=== PATIENT | male | born 1960 | race Caucasian/White ===

== ENCOUNTER 2016-11-04 13:31 | Inpatient (IN) | payer OTHER ==
--- NOTE | ~2016-11-04 | DS ---
Discharge Summary [facility] [address] [place]. [address] NAME: LVEY IBARRA : 64 STATUS : DIS IN PAT#: [id number] AGE: 56 ADM/REG DATE : 11/04/16 MR#: [id number] REPORT SERV DATE: 11/28/16 DICTATED BY: CLAU ZHOU JR. DATE: 11/27/16 REPORT STATUS : Draft TRANSCRIBED BY: HILARY DATE: 11/27/16 Data Collection from hospitalization DISCHARGE DIAGNOSES: 1. Coronary artery disease, status post coronary artery bypass. 2. Aortic stenosis, status post aortic valve replacement. 3. Hypertension. 4. Obstructive sleep apnea. 5. Dyslipidemia. 6. Obesity consulate. CONSULTATIONS: 1. Devan Gudino M.D. 2. Frank Bourne M.D. 3. Molina Gayle Jr, MD. PROCEDURES PERFORMED: 1. Urgent coronary artery bypass grafting x2 with left internal mammary artery to the left anterior descending artery, saphenous vein graft to the obtuse marginal, aortic valve replacement with #3 On-X mechanical valve; transesophageal echocardiogram; VasoView vein harvesting right lower extremity on 11/10/2016. 2. Carotid blood flow study on 11/06/2016. PATHOLOGY: Aortic valve leaflets - replacement - nodular calcification and limited myxomatous degeneration of valvular leaflets. MEDICATIONS: Cordarone 200 mg twice a day, aspirin 81 mg daily, Lipitor 40 mg at bedtime, vitamin D 50,000 units weekly, Pepcid 20 mg twice a day, Lasix 20 mg daily, [place] 10/325 half to one tablet every four hours as needed, Prinivil 5 mg daily, Lopressor 25 mg twice a day, Nitrostat 0.4 mg sublingually as needed, Klor-Con 20 mEq daily, nasal spray one spray nasally daily as needed, and Coumadin 5 mg daily. He was instructed not to continue Plavix. CONDITION AT DISCHARGE: Stable. DISPOSITION: The patient was discharged home on a low-cholesterol, low-sodium, 1800-calorie cardiac/diabetic diet with activities as instructed. He would follow up with Dr. Frank Bourne on 12/13/2016. He would follow up with Dr. Ynes Garza on 11/22/2016. He would follow up with Dr. Lo Lozano on 12/25/2016. He would have his INR level checked at the office of Dr. Ynes Garza on 11/17/2016. HOSPITAL COURSE: This is a 56-year-old man who has a history of coronary artery disease. He is status post cardiac catheterization by Dr. Lozano at [facility] in [place] on 11/02/2016. At that time, there was ventricular ectopy with PVCs. He had been scheduled to see Dr. Lainez for EP ablation, but was presumed to have angina for which a cardiac catheterization was scheduled. He was diagnosed with multivessel epicardial coronary artery disease with preserved left ventricular systolic function and moderate aortic stenosis. He was subsequently scheduled for referral to [place], but called EMS in [place] for increased palpitations and chest pressure with wheezing. [facility] redirected him to [address] [address] NAME: LEVY IBARRA : 64 STATUS : DIS IN PAT#: [id number] AGE: 56 ADM/REG DATE : 11/04/16 MR#: [id number] REPORT SERV DATE: 11/28/16 DICTATED BY: CLAU ZHOU JR. DATE: 11/27/16 REPORT STATUS : Draft TRANSCRIBED BY: HILARY DATE: 11/27/16 and he presented and was noted to have ventricular bigeminy. His symptoms of chest pain had dissipated on 2 liters nasal cannula oxygen. Troponin was mildly abnormal at 0.1. EKG was notable for sinus rhythm, delayed R-wave progression, nonspecific ST-T changes, and PVC with occasional ventricular bigeminy. The patient was seen by Dr. Devan Gudino. He has had some wheezing and chest tightness since admission, though his major complaint had been very frequent PVCs and atypical chest discomfort, although no substernal chest pain. He denies any chronic sputum production, significant cough, recent fever, chills, or night sweats. He does snore at night and had symptoms and signs to suggest obstructive sleep apnea and actually had a sleep study scheduled for early November, although obviously that had not taken place yet. His preoperative evaluation revealed very good performance status. He had good metabolic equivalent. He was able to at least walk a flight of stairs without significant dyspnea. He does not have chronic respiratory symptoms. He seemed to be good candidate from his perspective. He was started on some bronchodilators in anticipation of the surgery and it was felt that he may need CPAP or BiPAP postoperatively, although again his sleep apnea was likely of long duration and would definitely need formal outpatient sleep study. He was also seen by Dr. Frank Bourne for evaluation for coronary artery bypass grafting and aortic valve replacement. His cardiac catheterization had shown multi-vessel coronary artery disease as well as aortic stenosis. He wanted to await transfer of the patient's cardiac catheterization and echocardiogram from [facility] and wanted to review these. He wished to proceed with surgery. We would allow a Plavix washout period of time and perform his surgery later in the week. The patient did prefer a mechanical valve. On 11/06/2016, O2 saturation was 97% on room air. He had positive bowel sounds. He did have a bowel movement. Urinalysis was going to be obtained. A carotid blood flow study was performed. The patient was refusing his respiratory medications. He was awake and alert. He showed no distress. His breath sounds were clear. He had no new issues. Plans were being made to proceed with surgery. On 11/10/2016, the patient was taken to the operating room where he underwent the above-mentioned procedure by Dr. Frank Bourne. He tolerated this well, and there were no complications. On postop day #1, BMP was within normal limits. He did have some dizziness and headache. He had been extubated. He had appropriate chest pain. He had no new issues. He had no significant edema. He was seen by Dr. Molina Gayle regarding diabetes management. His preoperative hemoglobin A1c had been 5.6. He was going to be started on Coumadin that evening and transferred to the floor. White count was 23.7. He was felt to have some insulin resistance. There is no history of diabetes mellitus. He was currently on an insulin drip. This was discontinued and he was placed on sliding scale Humalog insulin. Metoprolol was continued as well as Lipitor. On 11/13/2016, chest x-ray showed no pneumothorax. He had diminished breath sounds throughout. Chest tubes were removed. He was evaluated by Physical Therapy. Warfarin had begun. He continued to progress. Discharge planning was performed. His INR level was 1.5. On 11/15/2016, he was in a normal sinus rhythm. He continued to do well. He had no new complaints. Discharge instructions were given. Due to his improved and stable condition, he was discharged home with the above stated instructions. Information collected by: Jessica Delvalle I submit the above information as my discharge summary. Discharge Summary [facility] [address] [place]. [address] NAME: LEVY IBARRA : 64 STATUS : DIS IN PAT#: [id number] AGE: 56 ADM/REG DATE : 11/04/16 MR#: [id number] REPORT SERV DATE: 11/28/16 DICTATED BY: CLAU ZHOU JR. DATE: 11/27/16 REPORT STATUS : Draft TRANSCRIBED BY: HILARY DATE: 11/27/16 TG/HILARY Clau Zhou Jr., M.D. / [id number] CC: Marino Puri M.D.
--- NOTE | ~2016-11-04 | CN ---
Consultation Report [facility] [address] [place]. [address] NAME: LEVY DODD : 64 STATUS : ADM IN [facility]#: [id number] AGE: 56 ADM/REG DATE : 11/04/16 MR#: [id number] REPORT SERV DATE: 11/05/16 DICTATED BY: KATERINE GUDINO DATE: 11/05/16 REPORT STATUS : Draft TRANSCRIBED BY: MODL DATE: 11/05/16 CONSULTATION DATE OF CONSULTATION: Thank you for the opportunity to consult on this patient. HISTORY OF PRESENT ILLNESS: Mr. Dodd is a very pleasant, overweight 56-year-old man diagnosed with multivessel coronary artery disease and aortic valve disease, who was being evaluated for AVR with CABG. He had some wheezing and chest tightness since admission though his major complaint has been of very frequent PVCs and atypical chest discomfort though no substernal chest pain. As part of his workup, he had a cardiac catheterization which showed the findings noted above. He denies significant cough, chronic sputum production, recent fevers, chills, or night sweats. He does snore at night and has symptoms and signs to suggest obstructive sleep apnea, and actually had a sleep study scheduled for early November though obviously that has not taken place yet and he is here. PAST MEDICAL HISTORY: Significant for the new diagnosis of critical coronary artery disease. He has a history of high blood pressure with medications at home and frequent PVCs though no history of chronic lung disease. SOCIAL HISTORY: Significant for being a lifelong never smoker. No alcohol abuse or illicit drug use. FAMILY HISTORY: Noncontributory to this acute presentation in this patient who has established coronary artery disease. REVIEW OF SYSTEMS: Review of 10 systems was performed and is positive for what was noted above. PHYSICAL EXAMINATION: GENERAL: He is awake and alert. HEENT: Normocephalic and atraumatic. NECK: Supple. No lymphadenopathy. No JVD. CHEST: Symmetric with good expansion bilaterally. LUNGS: Clear to auscultation and percussion bilaterally. CARDIOVASCULAR: He has S1 and S2, which are regular rate and rhythm. ABDOMEN: Benign. EXTREMITIES: He has no edema. No clubbing. No cyanosis. ASSESSMENT/PLAN: Preoperative evaluation. The patient has very good performance status. Good metabolic equivalent. He is able to walk at least a flight of stairs without significant dyspnea. Does not have chronic respiratory symptoms. No tobacco use and no previous history of chronic lung disease other than a diagnosis of pneumonia more than 20 years ago. He seems to be a good candidate from our perspective. Since he did have some Consultation Report [address] [place]. [address] NAME: LEVY DODD : 64 STATUS : ADM IN PAT#: [id number] AGE: 56 ADM/REG DATE : 11/04/16 MR#: [id number] REPORT SERV DATE: 11/05/16 DICTATED BY: KATERINE GUDINO DATE: 11/05/16 REPORT STATUS : Draft TRANSCRIBED BY: HILARY DATE: 11/05/16 wheezing which is fairly nonspecific and actually have represented some of his cardiac problems because of the AVR, we will nonetheless start him on some bronchodilators in anticipation of the surgery and he may need CPAP or BiPAP postoperatively though again his sleep apnea is likely of long duration and will definitely need formal outpatient sleep study. We will be glad to monitor him with you during this hospitalization. Please do not hesitate to contact me if I could be of any further assistance. VENITA/HILARY Katerine Gudino M.D. / [id number] CC: Berny Zhou Jr., M.D.
--- NOTE | ~2016-11-04 | CN ---
Consultation Report [facility] [address] [place]. [address] NAME: LEVY IBARRA : 64 STATUS : ADM IN PAT#: [id number] AGE: 56 ADM/REG DATE : 11/04/16 MR#: [id number] REPORT SERV DATE: 11/12/16 DICTATED BY: JR. GAYLE WILLIAM JOHN DATE: 11/12/16 REPORT STATUS : Draft TRANSCRIBED BY: MODL DATE: 11/12/16 INTERNAL MEDICINE CONSULTATION DATE OF CONSULTATION: 11/12/2016 REASON FOR REQUEST: Diabetes management. HISTORY OF PRESENT ILLNESS: A 56-year-old male admitted on 11/04/[address] Zhou for palpitations and multivessel coronary artery disease as well as moderate aortic stenosis. The patient had been seen at [facility] and had a catheterization revealing the above findings and was admitted by Dr. Zhou for further workup. The patient was seen in consultation by Dr. Gudino of Pulmonary Medicine for optimization of his respiratory status. He was also seen by Cardiothoracic Surgery. He had a carotid flow study, which showed no significant stenosis with antegrade vertebral flow. Then on 11/10/2016, the patient underwent a 2- vessel coronary artery bypass graft with a JACOBS to the LAD and a saphenous vein graft to the obtuse marginal as well as an aortic valve replacement with a mechanical valve #23 On-X mechanical valve without complication. The patient is to be started on Coumadin tonight and be transferred to the floor today. He has no history of diabetes mellitus. His preop hemoglobin A1c was 5.6. He is currently on 2 to 3 units/hour of insulin by drip. PAST MEDICAL HISTORY: Includes: 1. Hypertension. 2. COPD. 3. Coronary artery disease. 4. Hyperlipidemia. 5. Obesity. CURRENT MEDICATIONS: Include: 1. Amiodarone 400 mg every 12 hours. 2. Coumadin per sliding scale. 3. Aspirin 81 daily. 4. Lipitor 40 daily. 5. Metoprolol 25 b.i.d. 6. Orazinc 220 daily. 7. Pepcid 20 twice a day. 8. Senokot 2 tablets twice a day. 9. Vitamin C 1000 twice a day. 10.Vitamin D 50,000 units every Sunday. ALLERGIES: NO KNOWN DRUG ALLERGIES. FAMILY HISTORY: Mother at age 83 of Alzheimer's dementia. Father in his 50s of myocardial infarction, also had used tobacco and alcohol extensively. Consultation Report [facility] [address] [address] [facility] [place]. [address] NAME: LEVY IBARRA : 64 STATUS : ADM IN PAT#: [id number] AGE: 56 ADM/REG DATE : 11/04/16 MR#: [id number] REPORT SERV DATE: 11/12/16 DICTATED BY: JR. GAYLE WILLIAM JOHN DATE: 11/12/16 REPORT STATUS : Draft TRANSCRIBED BY: HILARY DATE: 11/12/16 SOCIAL HISTORY: Lives in [place], [place], with his and son. He does not drink, smoke, or do illicit drugs. 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 REVIEW OF SYSTEMS: Negative in all 12 systems review, except does admit to occasional palpitations, cough, and history of migraines. PHYSICAL EXAMINATION: VITAL SIGNS: Temperature 99.3, blood pressure 142/69, heart rate 84, and respiratory rate 20. He is on 3 units/hour of insulin by drip currently. GENERAL: The patient is alert, oriented, and very pleasant. HEENT: Pupils are equal, round, and reactive to light. Extraocular motion intact. Sclerae anicteric. Oropharynx is clear. NECK: Supple. There is no jugular venous distention, thyromegaly, or bruits. LUNGS: Had scattered crackles. There was a chest tube in place. Symmetrical chest rise. CARDIOVASCULAR: S1, S2 without gallop, murmur, or rub. There is a median sternotomy wound that is covered with a wound VAC. ABDOMEN: Obese, soft, nontender, bowel sounds present. EXTREMITIES: Show no clubbing, cyanosis, edema. He had a support hose on his legs. NEUROLOGIC: Cranial nerves 2 through 12 are intact. Strength and sensation are full and equal throughout. LYMPHATICS: Lymph node survey is negative in cervical and supraclavicular region. DERM: There are no rashes or other lesions noted. PSYCHIATRIC: Mood and affect are appropriate and upbeat. LABORATORY DATA: White count 23.7, hemoglobin 12.1, platelets 176. Sodium 137, potassium 4.4, chloride 105, bicarb 24, BUN 15, creatinine 0.8, glucose 121, calcium 9.1, magnesium 2.1. ASSESSMENT AND PLAN: A 56-year-old male with: 1. Post bypass and aortic valve replacement, insulin resistance. No history of diabetes mellitus with hemoglobin A1c of 5.6. He is currently on insulin drip at 2 to 3 units/hour. We will discontinue this, and we will place him on sliding scale Humalog insulin with Accu-Cheks q.a.c. and h.s. 2. Hypertension. Continue metoprolol. 3. Chronic obstructive pulmonary disease. Continue present. 4. Hyperlipidemia. Continue Lipitor. 5. Obesity with a body mass index of 43.7. 6. Mechanical heart valve. Coumadin to start tonight and his current INR is 1.3. FRANCK/HILARY Molina Robin Consultation Report [address] [address] NAME: LEVY IBARRA : 64 STATUS : ADM IN PAT#: [id number] AGE: 56 ADM/REG DATE : 11/04/16 MR#: [id number] REPORT SERV DATE: 11/12/16 DICTATED BY: JR. GAYLE WILLIAM JOHN DATE: 11/12/16 REPORT STATUS : Draft TRANSCRIBED BY: HILARY DATE: 11/12/16 Jr Gayle MD / [id number] CC: Berny Zhou Jr., M.D.
--- NOTE | ~2016-11-04 | HP ---
History And Physical [facility] [id number] [place]. [address] NAME: LEVY IBARRA : 64 STATUS : ADM IN PAT#: [id number] AGE: 56 ADM/REG DATE : 11/04/16 MR#: [id number] REPORT SERV DATE: 11/04/16 DICTATED BY: CLAU ZHOU JR. DATE: 11/04/16 REPORT STATUS : Draft TRANSCRIBED BY: MODJean DATE: 11/04/16 DATE OF ADMISSION: 11/04/2016 REFERRING: Dr. Lozano. CHIEF COMPLAINT: Palpitations, paresthesia, chest pain. HISTORY OF PRESENT ILLNESS: The patient is a 56-year-old, male with a history of coronary artery disease, post cardiac catheterization by Dr. Lozano at [facility] on 11/02/2016 for which indication at that time was ventricular ectopy with PVCs. He had been scheduled to see Dr. Lainez for EP ablation, but was presumed to have angina for which cardiac catheterization was scheduled. He was diagnosed with multivessel epicardial coronary artery disease with preserved LV systolic function and moderate aortic stenosis per Dr. Pérez' report. He was subsequently scheduled for referral to [place], but called EMS in [place] for increased palpitations and chest pressure with wheezing. [facility] redirected him to [facility] for which he presents now. He was noted to have ventricular bigeminy. His symptoms of chest pain had dissipated on 2 L nasal cannula oxygen. Troponin is mildly abnormal at 0.1. REVIEW OF SYSTEMS: A 10-point review of systems, otherwise, unremarkable. He denies any prior history of asthma, but is being evaluated for sleep apnea. ALLERGIES: NONE KNOWN. MEDICATIONS: Include amiodarone 200 mg b.i.d., aspirin 325 mg daily, Lipitor 10 mg at bedtime, Plavix 75 mg daily, vitamin D 50,000 units weekly on Tuesdays, lisinopril 10 mg daily, nitroglycerin sublingual as needed, [id number] nasal spray as needed. PAST MEDICAL HISTORY: Notable for history of hypertension, clinical obstructive sleep apnea, coronary artery disease, dyslipidemia, obesity. PAST SURGICAL HISTORY: Otherwise unremarkable. SOCIAL HISTORY: Notable for absence of tobacco or ethanol use. FAMILY HISTORY: Notable for heart disease. PHYSICAL EXAMINATION: VITAL SIGNS: Blood pressure is 121/72, pulse is 65, respirations 17, pulse oximetry was 100%. HEENT: Unremarkable. NECK: Supple without jugular venous distention. CARDIOVASCULAR SYSTEM: Regular rate and rhythm with a 2/6 systolic murmur. LUNGS: Notable for wheezing bilaterally. ABDOMEN: Benign without hepatomegaly. Bowel sounds are normal. History And Physical [address] [place]. [address] NAME: LEVY IBARRA : 64 STATUS : ADM IN [facility]#: [id number] AGE: 56 ADM/REG DATE : 11/04/16 MR#: [id number] REPORT SERV DATE: 11/04/16 DICTATED BY: CLAU ZHOU JR. DATE: 11/04/16 REPORT STATUS : Draft TRANSCRIBED BY: HILARY DATE: 11/04/16 EXTREMITIES: 1+ with only trace pedal edema. NEUROLOGIC: He is grossly intact. LABORATORY DATA: Include an H and H of 14.6 and 41.7, white count of 10.5, platelet count 226,000. Sodium 136, potassium 3.9, chloride 107, CO2 of 25, BUN 13, creatinine 0.8, glucose of 92, BNP of 40. Troponin 0.11. PT 13.4, INR of 1. Normal liver enzymes. Chest x-ray is unremarkable. EKG is notable for sinus rhythm, delayed R-wave progression, nonspecific ST changes. PVC with occasional ventricular bigeminy. IMPRESSION: 56-year-old white male with a diagnosed multivessel epicardial coronary artery disease, by report from his field support representative with moderate aortic stenosis. PLANS AND RECOMMENDATIONS: 1. Referral for CABG AVR as requested by his field support representative. 2. Pulmonary consultation for clinical obstructive adult sleep apnea. 3. Dietitian. 4. Further recommendations to follow. /HILARY Clau Zhou Jr., M.D. / [id number] CC: Clau Zhou Jr., M.D.
--- NOTE | ~2016-11-04 | OP ---
Record Of Operation [facility] [address] [place]. [address] NAME: LEVY IBARRA : 64 STATUS : ADM IN PAT#: [id number] AGE: 56 ADM/REG DATE : 11/04/16 MR#: [id number] REPORT SERV DATE: 11/10/16 DICTATED BY: FRANK COATES DATE: 11/10/16 REPORT STATUS : Draft TRANSCRIBED BY: MODL DATE: 11/10/16 DATE OF PROCEDURE: 11/10/2016 PREOPERATIVE DIAGNOSES: Aortic stenosis, coronary artery disease, and obesity. POSTOPERATIVE DIAGNOSES: Aortic stenosis, coronary artery disease, and obesity. PROCEDURE: 1. Urgent coronary artery bypass grafting x2 with a JACOBS to the LAD, saphenous vein graft to the obtuse marginal. 2. Aortic valve replacement with a #23 On-X mechanical valve. 3. Transesophageal echocardiogram. 4. VasoView vein harvesting, right lower extremity. SURGEON: Frank Coates M.D. ICT HELP DESK OFFICER: Nathan Navarro. ANESTHESIOLOGIST: Nitish Doshi. CARDIOPULMONARY BYPASS: 101 minutes. CROSS-CLAMP TIME: 83 minutes. FINDINGS: Calcified trileaflet valve, heavily diseased targets, normal ejection fraction, trace mitral regurgitation. Wires were atrial and ventricular x2. Tubes were left pleural x1, right pleural x1 and mediastinal x2. COMPLICATIONS: None. CONDITION: Fair to the ICU on no drips. AV paced at 80. PROCEDURE IN DETAIL: After informed consent was obtained from the patient, he was brought to the operating room, laid in supine position, and general anesthesia was induced. A transesophageal echocardiogram was performed, which showed moderate to severe aortic stenosis with trace mitral regurgitation and a normal ejection fraction. Patient was prepped and draped in normal fashion. Basically, vein harvesting commenced on the right lower extremity by making an incision just medial to the right knee. Dissection carried proximally and distally. All tributaries were coagulated. Counter incisions were made and the vein was removed. All tributaries were then clipped. Skin incisions were closed using Vicryl sutures. A median sternotomy was performed in the usual fashion. The left hemisternum elevated using a Rultract retractor. The left pleura was taken down in its entirety and the left internal mammary artery harvested from the chest wall using Bovie electrocautery. All tributaries were clipped. After systemic heparinization, the distal limb was severed from the chest wall and a good blood flow was noted. Papaverine was soaked on the vessel wall. Pericardium was opened in the midline and tacked to the skin using Record Of Operation [facility] [address] [place]. [address] NAME: LEVY IBARRA : 64 STATUS : ADM IN PAT#: [id number] AGE: 56 ADM/REG DATE : 11/04/16 MR#: [id number] REPORT SERV DATE: 11/10/16 DICTATED BY: FRANK COATES DATE: 11/10/16 REPORT STATUS : Draft TRANSCRIBED BY: MODL DATE: 11/10/16 multiple silk sutures. Aortic cannulation was performed. The proximal aortic arch and venous cannulation performed in the right atrial appendage. A retrograde cardioplegia cannula was placed in the coronary sinus via the right atrium. The patient was placed on cardiopulmonary bypass and cooled to approximately 35 degrees. An LV vent was placed via the right superior pulmonary vein. A cardioplegia/vent cannula was placed in the ascending aorta. Cross clamp was placed across the aorta and 800 mL of cold blood cardioplegia given to the aortic root with excellent arrest. Heart was rotated and the obtuse marginal artery identified. This was dissected using a [place] blade and extended using Mabry scissors. Saphenous vein was placed in a reverse manner, a zhou created, and an end-to-side anastomosis performed using a running 7-0 Deklene suture. Heart was filled and the vein sized to the ascending aorta around the left side of the heart. Antegrade cardioplegia was given. Ascending aorta was then entered sharply just above the sinotubular junction. The aortic valve was then excised using scissors. Rongeurs were then used to debride all calcific debris back to soft anulus. The anulus was sized and a #23 On-X mechanical valve selected. Circumferential 2-0 Tycron pledgeted sutures were placed around the valve anulus so that the valve would be placed in a supra-annular fashion. Sutures were then fired through the sewing ring of the valve without difficulty. Intermittent retrograde cardioplegia was administered. The valve was seated without difficulty and sutures were tied down circumferentially. The ascending aorta was then closed using two running 4-0 Prolene sutures. Heart was filled and de-aired through the root vent. Antegrade cardioplegia was given. Midportion of the LAD artery was identified, dissected using a [place] blade. It was heavily diseased but a soft spot was found. Distal end of the mammary artery was fashioned to a zhou and end-to-side anastomosis performed using a running 8-0 Deklene suture. Bulldog was released and excellent blood flow was noted distally. Fascia of the mammary was tacked down to the LV wall using two 6-0 Prolene sutures. Antegrade cardioplegia was given. An 11 blade knife was used to make a single stab incision on the ascending aorta, and a 4.5 mm punch used to create a single aortotomy. Single proximal anastomosis was performed using a running 6-0 Prolene suture. Heart was filled and de-aired through the root vent. Cross-clamp was removed. Ventricular pacing wires were placed on the right ventricular surface. A left pleural, right pleural, and posterior pericardial chest tubes were placed. Atrial pacing wires were placed on the right atrial surface. After the patient achieved normothermia, he was weaned from cardiopulmonary bypass without difficulty. Doppler flow analysis was performed on both tributaries and both had excellent flow. Transesophageal echocardiogram showed the valve to be functioning well with no perivalvular leaks. Protamine was administered. The patient was decannulated. After surgical hemostasis was achieved, an anterior pericardial chest tube was placed and the sternum reapproximated using the sternal cable system. The skin, subcutaneous, and the subcuticular tissue were closed over the sternum using running Vicryl and Monocryl sutures. Overall, the patient tolerated the procedure well, was transported to the ICU in fair condition on no drips. AV paced at 80. CCR/MODL Frank Coates M.D. Record Of Operation [facility] [address] [place]. [address] NAME: LEVY IBARRA : 64 STATUS : ADM IN [facility]#: [id number] AGE: 56 ADM/REG DATE : 11/04/16 MR#: [id number] REPORT SERV DATE: 11/10/16 DICTATED BY: FRANK COATES DATE: 11/10/16 REPORT STATUS : Draft TRANSCRIBED BY: HILARY DATE: 11/10/16 / [id number] CC: Berny Zhou Jr., M.D.
--- NOTE | ~2016-11-04 | CN ---
Consultation Report [facility] [address] [place]. [address] NAME: LEVY IBARRA : 64 STATUS : ADM IN PAT#: [id number] AGE: 56 ADM/REG DATE : 11/04/16 MR#: [id number] REPORT SERV DATE: 11/10/16 DICTATED BY: FRANK COATES DATE: 11/10/16 REPORT STATUS : Draft TRANSCRIBED BY: MODL DATE: 11/10/16 CONSULT NOTE DATE OF CONSULTATION: 11/05/2016 REFERRING PHYSICIAN: Dr. Lo Lozano of [place]. REASON FOR REFERRAL: Evaluation for coronary artery bypass grafting and aortic valve replacement. HISTORY OF PRESENT ILLNESS: The patient is a 56-year-old male, who was admitted to [facility] for chest pressure. He had a cardiac cath this past that showed multivessel coronary artery disease as well as aortic stenosis. He was pending workup at [facility] but after chest pain and pressure was seen by EMS and brought to [facility]. He also had multiple PVCs as well. He was admitted to the Cardiology Service and we were consulted for intervention. PAST MEDICAL HISTORY: Significant for coronary artery disease, hypertension, obstructive sleep apnea, hyperlipidemia, and obesity. PAST SURGICAL HISTORY: Cardiac catheterization. SOCIAL HISTORY: Negative for alcohol or illegal drug use. Former smoker. FAMILY HISTORY: Relevant for only hypertension, no coronary artery disease. ALLERGIES: NO KNOWN DRUG ALLERGIES. HOME MEDICATIONS: Plavix, Lipitor, aspirin, lisinopril, and nitroglycerin. REVIEW OF SYSTEMS: Otherwise negative that which was stated in the HPI. PHYSICAL EXAMINATION: VITAL SIGNS: He is afebrile. Vital signs are all stable. HEENT: Normocephalic, atraumatic with no scleral icterus. NECK: Supple with no thyromegaly. CHEST: Clear to auscultation bilaterally. HEART: Regular rate and rhythm with a 3/6 systolic murmur. ABDOMEN: Soft, nontender, nondistended. EXTREMITIES: Warm with 1+ distal pulses. No clubbing, cyanosis, or edema. MUSCULOSKELETAL: Grossly intact. NEUROLOGIC: Grossly intact. Consultation Report [facility] [address] [place]. [address] NAME: LEVY IBARRA : 64 STATUS : ADM IN PAT#: [id number] AGE: 56 ADM/REG DATE : 11/04/16 MR#: [id number] REPORT SERV DATE: 11/10/16 DICTATED BY: FRANK COATES DATE: 11/10/16 REPORT STATUS : Draft TRANSCRIBED BY: HILARY DATE: 11/10/16 STUDIES: We are awaiting transfer of his cardiac catheterization and echocardiogram from [facility], but once these are received, I will review these. IMPRESSION: Multivessel coronary artery disease with aortic stenosis. I have explained all risks, benefits, and alternatives of surgery with him including but not limited to, bleeding, infection, stroke, and . He understands these risks and wished to proceed with surgery. We will allow a Plavix washout period of time and perform his surgery later in the week. The patient does prefer a mechanical valve. CCR/HILARY Frank Coates M.D. / [id number] CC: Berny Zhou Jr., M.D.
[2016-11-04 13:16] LABS: BASOPHILS 0.2 %; BASOPHILS ABSOLUTE 0.02 10/3/uL (0.0-0.16); EOSINOPHILS 0.4 %; EOSINOPHILS ABSOLUTE 0.04 10/3/uL (0.0-0.53); ER CBC TAT 0 Hrs 03 Mins; HEMATOCRIT 41.7 % (40.0-51.0); HEMOGLOBIN 14.6 g/dL (13.6-17.8); IMMATURE GRANULOCYTES 0.3 %; IMMATURE GRANULOCYTES ABSOLUTE 0.03 10/3/uL (0.0-0.11); LYMPHOCYTES 15.9 %; LYMPHOCYTES ABSOLUTE 1.67 10/3/uL (0.67-4.30); MEAN CORPUSCULAR HEMOGLOB 31.8 pg (26.0-34.0); MEAN CORPUSCULAR VOLUME 90.8 fL (80-100); MEAN PLATELET VOLUME 10.2 fL (9.2-13.0); MONOCYTES 7.3 %; MONOCYTES ABSOLUTE 0.77 10/3/uL (0.21-1.20); NEUTROPHILS 75.9 %; PLATELET COUNT 226 10/3/uL (150-400); RBC DISTRIBUTION WIDTH 12.9 % (12.0-16.0); RED CELL COUNT 4.59 10/6/uL (4.7-6.1); WHITE BLOOD CELLS 10.5 10/3/uL (4.5-10.5)
[2016-11-04 13:19] LABS: MANUAL DIFF NO %
[2016-11-04 13:24] LABS: PROTIME (NOT ORD) 13.4 SEC (12.0-14.5)
[2016-11-04 13:33] LABS: A/G RATIO 0.8 (0.7-1.9); ALBUMIN 3.2 G/DL (3.5-5.0); ALKALINE PHOSPHATASE 61 U/L (45-117); BUN (BLOOD UREA NITROGEN) 13 MG/DL (6-23); CALCIUM, SERUM 8.8 MG/DL (8.5-10.4); CHLORIDE, SERUM 107 MMOL/L (96-112); CO2 (CARBON DIOXIDE) 25 MMOL/L (24-34); CREATININE 0.84 MG/DL (0.70-1.30); GFR AFRICAN AMERICAN 115 ML/MIN (>=60); GFR NON AFRICAN AMERICAN 99 ML/MIN (>=60); GLOBULIN 3.9 G/DL (2.5-4.1); POTASSIUM, SERUM 3.9 MMOL/L (3.5-5.3); SGOT(AST) 23 U/L (5-40); SGPT(ALT) 35 U/L (5-65); SODIUM, SERUM 136 MMOL/L (135-148); TOTAL BILIRUBIN 0.6 MG/DL (0-1.2); TOTAL PROTEIN 7.1 G/DL (6.0-8.5)
[2016-11-04 13:36] LABS: GLUCOSE, SERUM 92 MG/DL (60-99); TROPONIN I 0.11 NG/ML (<0.05)
[2016-11-04] MEDS ORDERED: CORDARONE PO (13:58)
[2016-11-04] MEDS ORDERED: LIPITOR10 PO (13:58)
[2016-11-04] MEDS ORDERED: PLAVIX PO (13:58)
[2016-11-04] MEDS ORDERED: ASABAYER PO (13:59)
[2016-11-04] MEDS ORDERED: PRIN10 PO (14:00)
[2016-11-04] MEDS ORDERED: NITROSTAT0.4 MG SL (14:00)
[2016-11-04] MEDS ORDERED: OTC NASAL SPRAY NAS (14:00)
[2016-11-04] MEDS ORDERED: VITD PO (14:00)
[2016-11-05 01:16] LABS: BASOPHILS 0.1 %; BASOPHILS ABSOLUTE 0.01 10/3/uL (0.0-0.16); EOSINOPHILS 0.9 %; HEMATOCRIT 40.3 % (40.0-51.0); HEMOGLOBIN 13.8 g/dL (13.6-17.8); IMMATURE GRANULOCYTES 0.2 %; IMMATURE GRANULOCYTES ABSOLUTE 0.02 10/3/uL (0.0-0.11); LYMPHOCYTES 25.4 %; LYMPHOCYTES ABSOLUTE 2.77 10/3/uL (0.67-4.30); MANUAL DIFF NO %; MEAN CORPUS HGB CONC 34.2 g/dL (32.0-36.0); MEAN CORPUSCULAR HEMOGLOB 31.2 pg (26.0-34.0); MEAN CORPUSCULAR VOLUME 91.2 fL (80-100); MEAN PLATELET VOLUME 10.4 fL (9.2-13.0); MONOCYTES 8.6 %; MONOCYTES ABSOLUTE 0.94 10/3/uL (0.21-1.20); NEUTROPHILS 64.8 %; NEUTROPHILS ABSOLUTE 7.06 10/3/uL (2.02-8.40); PLATELET COUNT 222 10/3/uL (150-400); RED CELL COUNT 4.42 10/6/uL (4.7-6.1); WHITE BLOOD CELLS 10.9 10/3/uL (4.5-10.5)
[2016-11-05 01:31] LABS: BUN (BLOOD UREA NITROGEN) 15 MG/DL (6-23); CALCIUM, SERUM 8.6 MG/DL (8.5-10.4); CHLORIDE, SERUM 106 MMOL/L (96-112); CHOL/HDL RATIO(NOT ORDER) 5.3 (0-5); CHOLESTEROL 127 MG/DL (< 200); CO2 (CARBON DIOXIDE) 27 MMOL/L (24-34); CREATININE 0.83 MG/DL (0.70-1.30); GFR AFRICAN AMERICAN 116 ML/MIN (>=60); GFR NON AFRICAN AMERICAN 100 ML/MIN (>=60); GLUCOSE, SERUM 88 MG/DL (60-99); HDL CHOLESTEROL 24 MG/DL (> 39); LDL CHOLESTEROL 69 MG/DL (< 130); NON-HDL CHOLESTEROL 103 MG/DL (< 160); POTASSIUM, SERUM 3.7 MMOL/L (3.5-5.3); SGPT(ALT) 34 U/L (5-65); SODIUM, SERUM 139 MMOL/L (135-148); TRIGLYCERIDE 174 MG/DL (< 150)
[2016-11-06 05:03] LABS: BUN (BLOOD UREA NITROGEN) 15 MG/DL (6-23); CALCIUM, SERUM 8.6 MG/DL (8.5-10.4); CHLORIDE, SERUM 107 MMOL/L (96-112); CO2 (CARBON DIOXIDE) 27 MMOL/L (24-34); CREATININE 0.87 MG/DL (0.70-1.30); GFR AFRICAN AMERICAN 113 ML/MIN (>=60); GFR NON AFRICAN AMERICAN 98 ML/MIN (>=60); GLUCOSE, SERUM 124 MG/DL (60-99); POTASSIUM, SERUM 3.8 MMOL/L (3.5-5.3); SODIUM, SERUM 140 MMOL/L (135-148)
[2016-11-06 06:00] LABS: MAX AMP (ADP) 17.8 MM (35-68)
[2016-11-06 06:01] LABS: TEG - ANGLE 62.5 DEG (53-72); TEG - COAGULATION INDEX -2.3 (-3 TO 3); TEG - MAXIMUM AMPLITUDE 61.7 MM (50-70); TEG - RATE 9.2 MIN (5.0-10.0)
[2016-11-06 07:08] LABS: BASOPHILS 0.2 %; BASOPHILS ABSOLUTE 0.03 10/3/uL (0.0-0.16); EOSINOPHILS 1.3 %; EOSINOPHILS ABSOLUTE 0.18 10/3/uL (0.0-0.53); HEMOGLOBIN 15.1 g/dL (13.6-17.8); IMMATURE GRANULOCYTES 0.4 %; IMMATURE GRANULOCYTES ABSOLUTE 0.05 10/3/uL (0.0-0.11); LYMPHOCYTES 20.6 %; LYMPHOCYTES ABSOLUTE 2.79 10/3/uL (0.67-4.30); MEAN CORPUS HGB CONC 33.9 g/dL (32.0-36.0); MEAN CORPUSCULAR HEMOGLOB 31.1 pg (26.0-34.0); MEAN PLATELET VOLUME 10.6 fL (9.2-13.0); MONOCYTES 8.9 %; NEUTROPHILS 68.6 %; NEUTROPHILS ABSOLUTE 9.27 10/3/uL (2.02-8.40); PLATELET COUNT 204 10/3/uL (150-400); RBC DISTRIBUTION WIDTH 12.9 % (12.0-16.0); RED CELL COUNT 4.85 10/6/uL (4.7-6.1); WHITE BLOOD CELLS 13.5 10/3/uL (4.5-10.5)
[2016-11-06 07:10] LABS: HEMATOCRIT 44.6 % (40.0-51.0); MANUAL DIFF NO %
[2016-11-06 15:52] LABS: ASCORBIC ACID (UR NOT ORDER) NEG (NEG); BILIRUBIN, URINE NEGATIVE (NEG); KETONE, URINE NEGATIVE (NEG); LEUKOCYTE ESTERASE(NOT OR NEG (NEG); WBC (NOT ORDERED) (RFLEX) < 1 (0-5)
[2016-11-07 07:04] LABS: BASOPHILS 0.2 %; BASOPHILS ABSOLUTE 0.02 10/3/uL (0.0-0.16); EOSINOPHILS 1.5 %; EOSINOPHILS ABSOLUTE 0.18 10/3/uL (0.0-0.53); HEMATOCRIT 43.7 % (40.0-51.0); IMMATURE GRANULOCYTES 0.2 %; IMMATURE GRANULOCYTES ABSOLUTE 0.03 10/3/uL (0.0-0.11); LYMPHOCYTES 20.5 %; LYMPHOCYTES ABSOLUTE 2.47 10/3/uL (0.67-4.30); MANUAL DIFF NO %; MEAN CORPUS HGB CONC 34.3 g/dL (32.0-36.0); MEAN CORPUSCULAR HEMOGLOB 31.3 pg (26.0-34.0); MEAN PLATELET VOLUME 10.2 fL (9.2-13.0); MONOCYTES 8.1 %; MONOCYTES ABSOLUTE 0.97 10/3/uL (0.21-1.20); NEUTROPHILS 69.5 %; NEUTROPHILS ABSOLUTE 8.37 10/3/uL (2.02-8.40); PLATELET COUNT 233 10/3/uL (150-400)
[2016-11-07 07:21] LABS: BUN (BLOOD UREA NITROGEN) 13 MG/DL (6-23); CALCIUM, SERUM 8.7 MG/DL (8.5-10.4); CHLORIDE, SERUM 106 MMOL/L (96-112); CO2 (CARBON DIOXIDE) 25 MMOL/L (24-34); CREATININE 0.91 MG/DL (0.70-1.30); GFR AFRICAN AMERICAN 110 ML/MIN (>=60); GFR NON AFRICAN AMERICAN 95 ML/MIN (>=60); GLUCOSE, SERUM 104 MG/DL (60-99); POTASSIUM, SERUM 3.9 MMOL/L (3.5-5.3); SODIUM, SERUM 139 MMOL/L (135-148)
[2016-11-07 07:49] LABS: PARTIAL THROMBO TIME > 150.0 SEC (22.5-37.2); TEG - RATE 10.8 MIN (5.0-10.0)
[2016-11-07 07:50] LABS: MAX AMP (ADP) 30.3 MM (35-68); TEG - ANGLE 60.9 DEG (53-72); TEG - COAGULATION INDEX -3.5 (-3 TO 3); TEG - MAXIMUM AMPLITUDE 62.4 MM (50-70); TEG PLAVIX/EFFIENT/TICLID(ADP) 77.5 % INHIB (< 40)
[2016-11-08 04:32] LABS: BASOPHILS 0.2 %; BASOPHILS ABSOLUTE 0.03 10/3/uL (0.0-0.16); EOSINOPHILS 1.9 %; EOSINOPHILS ABSOLUTE 0.28 10/3/uL (0.0-0.53); HEMATOCRIT 43.2 % (40.0-51.0); HEMOGLOBIN 14.9 g/dL (13.6-17.8); IMMATURE GRANULOCYTES 0.5 %; IMMATURE GRANULOCYTES ABSOLUTE 0.07 10/3/uL (0.0-0.11); LYMPHOCYTES 20.3 %; LYMPHOCYTES ABSOLUTE 2.98 10/3/uL (0.67-4.30); MEAN CORPUS HGB CONC 34.5 g/dL (32.0-36.0); MEAN CORPUSCULAR HEMOGLOB 31.5 pg (26.0-34.0); MEAN CORPUSCULAR VOLUME 91.3 fL (80-100); MEAN PLATELET VOLUME 10.5 fL (9.2-13.0); MONOCYTES 8.1 %; MONOCYTES ABSOLUTE 1.19 10/3/uL (0.21-1.20); NEUTROPHILS ABSOLUTE 10.12 10/3/uL (2.02-8.40); PLATELET COUNT 243 10/3/uL (150-400); RBC DISTRIBUTION WIDTH 13.2 % (12.0-16.0); RED CELL COUNT 4.73 10/6/uL (4.7-6.1); WHITE BLOOD CELLS 14.7 10/3/uL (4.5-10.5)
[2016-11-08 04:36] LABS: MANUAL DIFF NO %
[2016-11-08 04:49] LABS: BUN (BLOOD UREA NITROGEN) 14 MG/DL (6-23); CALCIUM, SERUM 9.2 MG/DL (8.5-10.4); CHLORIDE, SERUM 106 MMOL/L (96-112); CO2 (CARBON DIOXIDE) 25 MMOL/L (24-34); CREATININE 0.96 MG/DL (0.70-1.30); GFR AFRICAN AMERICAN 103 ML/MIN (>=60); GFR NON AFRICAN AMERICAN 89 ML/MIN (>=60); GLUCOSE, SERUM 102 MG/DL (60-99); SODIUM, SERUM 139 MMOL/L (135-148)
[2016-11-09 06:42] LABS: BASOPHILS 0.2 %; BASOPHILS ABSOLUTE 0.02 10/3/uL (0.0-0.16); EOSINOPHILS 1.7 %; EOSINOPHILS ABSOLUTE 0.22 10/3/uL (0.0-0.53); HEMATOCRIT 43.1 % (40.0-51.0); HEMOGLOBIN 14.7 g/dL (13.6-17.8); IMMATURE GRANULOCYTES 0.3 %; IMMATURE GRANULOCYTES ABSOLUTE 0.04 10/3/uL (0.0-0.11); LYMPHOCYTES 18.7 %; LYMPHOCYTES ABSOLUTE 2.39 10/3/uL (0.67-4.30); MEAN CORPUS HGB CONC 34.1 g/dL (32.0-36.0); MEAN CORPUSCULAR HEMOGLOB 31.1 pg (26.0-34.0); MEAN CORPUSCULAR VOLUME 91.3 fL (80-100); MEAN PLATELET VOLUME 10.4 fL (9.2-13.0); MONOCYTES 8.5 %; MONOCYTES ABSOLUTE 1.08 10/3/uL (0.21-1.20); NEUTROPHILS 70.6 %; PLATELET COUNT 252 10/3/uL (150-400); RBC DISTRIBUTION WIDTH 13.1 % (12.0-16.0); RED CELL COUNT 4.72 10/6/uL (4.7-6.1); WHITE BLOOD CELLS 12.8 10/3/uL (4.5-10.5)
[2016-11-09 06:45] LABS: MANUAL DIFF NO %
[2016-11-09 06:50] LABS: BUN (BLOOD UREA NITROGEN) 13 MG/DL (6-23); CALCIUM, SERUM 8.7 MG/DL (8.5-10.4); CHLORIDE, SERUM 105 MMOL/L (96-112); CO2 (CARBON DIOXIDE) 28 MMOL/L (24-34); CREATININE 1.02 MG/DL (0.70-1.30); GFR AFRICAN AMERICAN 96 ML/MIN (>=60); GFR NON AFRICAN AMERICAN 83 ML/MIN (>=60); GLUCOSE, SERUM 93 MG/DL (60-99); POTASSIUM, SERUM 4.2 MMOL/L (3.5-5.3); SODIUM, SERUM 140 MMOL/L (135-148)
[2016-11-09 07:16] LABS: TEG - RATE 8.2 MIN (5.0-10.0)
[2016-11-09 07:17] LABS: TEG - ANGLE 67.7 DEG (53-72); TEG - COAGULATION INDEX -0.7 (-3 TO 3); TEG - MAXIMUM AMPLITUDE 64.4 MM (50-70)
[2016-11-09 07:19] LABS: TEG PLAVIX/EFFIENT/TICLID(ADP) 40.8 % INHIB (< 40)
[2016-11-09 13:55] LABS: BASOPHILS 0.3 %; BASOPHILS ABSOLUTE 0.03 10/3/uL (0.0-0.16); EOSINOPHILS 1.6 %; EOSINOPHILS ABSOLUTE 0.18 10/3/uL (0.0-0.53); HEMATOCRIT 43.4 % (40.0-51.0); HEMOGLOBIN 15.4 g/dL (13.6-17.8); IMMATURE GRANULOCYTES 0.3 %; IMMATURE GRANULOCYTES ABSOLUTE 0.03 10/3/uL (0.0-0.11); LYMPHOCYTES 19.1 %; LYMPHOCYTES ABSOLUTE 2.17 10/3/uL (0.67-4.30); MEAN CORPUS HGB CONC 35.5 g/dL (32.0-36.0); MEAN CORPUSCULAR HEMOGLOB 31.6 pg (26.0-34.0); MEAN CORPUSCULAR VOLUME 89.1 fL (80-100); MEAN PLATELET VOLUME 10.3 fL (9.2-13.0); MONOCYTES 6.6 %; MONOCYTES ABSOLUTE 0.75 10/3/uL (0.21-1.20); NEUTROPHILS 72.1 %; NEUTROPHILS ABSOLUTE 8.22 10/3/uL (2.02-8.40); PLATELET COUNT 263 10/3/uL (150-400); RBC DISTRIBUTION WIDTH 13.2 % (12.0-16.0); RED CELL COUNT 4.87 10/6/uL (4.7-6.1); WHITE BLOOD CELLS 11.4 10/3/uL (4.5-10.5)
[2016-11-09 13:56] LABS: MANUAL DIFF NO %
[2016-11-09 14:01] LABS: INTERNATIONAL NORMAL RATI 1.1 UNITS (-); PROTIME (NOT ORD) 14.2 SEC (12.0-14.5)
[2016-11-09 14:08] LABS: A/G RATIO 0.8 (0.7-1.9); ALBUMIN 3.8 G/DL (3.5-5.0); ALKALINE PHOSPHATASE 73 U/L (45-117); BUN (BLOOD UREA NITROGEN) 12 MG/DL (6-23); CALCIUM, SERUM 9.2 MG/DL (8.5-10.4); CHLORIDE, SERUM 104 MMOL/L (96-112); CO2 (CARBON DIOXIDE) 26 MMOL/L (24-34); CREATININE 1.07 MG/DL (0.70-1.30); GFR AFRICAN AMERICAN 91 ML/MIN (>=60); GFR NON AFRICAN AMERICAN 78 ML/MIN (>=60); GLOBULIN 4.6 G/DL (2.5-4.1); GLUCOSE, SERUM 116 MG/DL (60-99); POTASSIUM, SERUM 4.4 MMOL/L (3.5-5.3); SGOT(AST) 33 U/L (5-40); SGPT(ALT) 58 U/L (5-65); SODIUM, SERUM 138 MMOL/L (135-148); TOTAL BILIRUBIN 0.7 MG/DL (0-1.2); TOTAL PROTEIN 8.4 G/DL (6.0-8.5)
[2016-11-10 05:25] LABS: HEMATOCRIT 45.6 % (40.0-51.0); HEMOGLOBIN 15.4 g/dL (13.6-17.8)
[2016-11-10 05:36] LABS: BUN (BLOOD UREA NITROGEN) 14 MG/DL (6-23); CALCIUM, SERUM 9.4 MG/DL (8.5-10.4); CHLORIDE, SERUM 104 MMOL/L (96-112); CO2 (CARBON DIOXIDE) 26 MMOL/L (24-34); CREATININE 1.15 MG/DL (0.70-1.30); GFR AFRICAN AMERICAN 83 ML/MIN (>=60); GFR NON AFRICAN AMERICAN 72 ML/MIN (>=60); GLUCOSE, SERUM 95 MG/DL (60-99); POTASSIUM, SERUM 3.9 MMOL/L (3.5-5.3); SODIUM, SERUM 139 MMOL/L (135-148)
[2016-11-10 17:07] LABS: BE (BASE EXCESS) -2.6 MEQ/L (0 +/- 2.5); CARBOXYHEMOGLOBIN 0.2 % (0-3); HCO3 (ACTUAL BICARBONATE) 21.8 MEQ/L (23-27); INSTRUMENT SERIAL # 11843; METHEMOGLOBIN 0.5 % (0-3); MODE SIMV; O2 CONTENT 19.4 VOL% (18-24); OPERATOR ID 13624; PCO2 (CO2 TENSION) 37 MMHG (35-45); PO2 (O2 TENSION) 134 MMHG (79-93); PRESSURE SUPPORT 10 cm.H2O; SAMPLE Arterial; TIDAL VOLUME 800 ML; pH 7.39 (7.37-7.43)
[2016-11-10 18:00] LABS: BUN (BLOOD UREA NITROGEN) 16 MG/DL (6-23); CALCIUM, SERUM 8.7 MG/DL (8.5-10.4); CHLORIDE, SERUM 109 MMOL/L (96-112); CO2 (CARBON DIOXIDE) 24 MMOL/L (24-34); CREATININE 1.38 MG/DL (0.70-1.30); GFR AFRICAN AMERICAN 67 ML/MIN (>=60); GFR NON AFRICAN AMERICAN 58 ML/MIN (>=60); GLUCOSE, SERUM 120 MG/DL (60-99); POTASSIUM, SERUM 4.4 MMOL/L (3.5-5.3); SODIUM, SERUM 140 MMOL/L (135-148)
[2016-11-10 18:02] LABS: HEMOGLOBIN 13.1 g/dL (13.6-17.8)
[2016-11-10 18:04] LABS: HEMATOCRIT 37.5 % (40.0-51.0); PLATELET COUNT 180 10/3/uL (150-400)
[2016-11-10 18:10] LABS: INTERNATIONAL NORMAL RATI 1.4 UNITS (-)
[2016-11-10 18:11] LABS: PARTIAL THROMBO TIME 34.8 SEC (22.5-37.2); PROTIME (NOT ORD) 16.8 SEC (12.0-14.5)
[2016-11-10 22:09] LABS: HEMATOCRIT 38.1 % (40.0-51.0); HEMOGLOBIN 13.3 g/dL (13.6-17.8)
[2016-11-10 22:16] LABS: BE (BASE EXCESS) -5.6 MEQ/L (0 +/- 2.5); CARBOXYHEMOGLOBIN 0.1 % (0-3); HCO3 (ACTUAL BICARBONATE) 19.9 MEQ/L (23-27); HEMOBLOGIN CONTENT 14.2 G/DL (14-18); INSTRUMENT SERIAL # 11843; METHEMOGLOBIN 0.4 % (0-3); PCO2 (CO2 TENSION) 39 MMHG (35-45); PO2 (O2 TENSION) 96 MMHG (79-93); pH 7.32 (7.37-7.43)
[2016-11-10 22:17] LABS: DEVICE NC; O2 CONTENT 19.1 VOL% (18-24); SAMPLE Arterial
[2016-11-10 22:21] LABS: BUN (BLOOD UREA NITROGEN) 18 MG/DL (6-23); CHLORIDE, SERUM 110 MMOL/L (96-112); CO2 (CARBON DIOXIDE) 27 MMOL/L (24-34); CREATININE 1.22 MG/DL (0.70-1.30); GFR AFRICAN AMERICAN 77 ML/MIN (>=60); GFR NON AFRICAN AMERICAN 67 ML/MIN (>=60); GLUCOSE, SERUM 116 MG/DL (60-99); POTASSIUM, SERUM 5.2 MMOL/L (3.5-5.3); SODIUM, SERUM 141 MMOL/L (135-148)
[2016-11-11 04:18] LABS: BASOPHILS 0 %; BASOPHILS ABSOLUTE 0.01 10/3/uL (0.0-0.16); EOSINOPHILS 0 %; HEMATOCRIT 37.2 % (40.0-51.0); HEMOGLOBIN 12.9 g/dL (13.6-17.8); IMMATURE GRANULOCYTES 0.3 %; IMMATURE GRANULOCYTES ABSOLUTE 0.07 10/3/uL (0.0-0.11); LYMPHOCYTES 4.2 %; LYMPHOCYTES ABSOLUTE 0.92 10/3/uL (0.67-4.30); MEAN CORPUS HGB CONC 34.7 g/dL (32.0-36.0); MEAN CORPUSCULAR HEMOGLOB 31.3 pg (26.0-34.0); MEAN CORPUSCULAR VOLUME 90.3 fL (80-100); MEAN PLATELET VOLUME 10.3 fL (9.2-13.0); MONOCYTES ABSOLUTE 1.55 10/3/uL (0.21-1.20); NEUTROPHILS 88.5 %; NEUTROPHILS ABSOLUTE 19.57 10/3/uL (2.02-8.40); PLATELET COUNT 173 10/3/uL (150-400); RBC DISTRIBUTION WIDTH 13.3 % (12.0-16.0); RED CELL COUNT 4.12 10/6/uL (4.7-6.1)
[2016-11-11 04:20] LABS: MANUAL DIFF NO %; WHITE BLOOD CELLS 22.1 10/3/uL (4.5-10.5)
[2016-11-11 04:33] LABS: BUN (BLOOD UREA NITROGEN) 19 MG/DL (6-23); CALCIUM, SERUM 8.7 MG/DL (8.5-10.4); CHLORIDE, SERUM 111 MMOL/L (96-112); CO2 (CARBON DIOXIDE) 24 MMOL/L (24-34); CREATININE 1.07 MG/DL (0.70-1.30); GFR AFRICAN AMERICAN 91 ML/MIN (>=60); GFR NON AFRICAN AMERICAN 78 ML/MIN (>=60); GLUCOSE, SERUM 93 MG/DL (60-99); POTASSIUM, SERUM 4.7 MMOL/L (3.5-5.3); SODIUM, SERUM 142 MMOL/L (135-148)
[2016-11-11 07:03] LABS: INTERNATIONAL NORMAL RATI 1.3 UNITS (-); PROTIME (NOT ORD) 15.8 SEC (12.0-14.5)
[2016-11-12 04:13] LABS: BASOPHILS 0 %; BASOPHILS ABSOLUTE 0.01 10/3/uL (0.0-0.16); EOSINOPHILS 0 %; HEMATOCRIT 35.5 % (40.0-51.0); HEMOGLOBIN 12.1 g/dL (13.6-17.8); IMMATURE GRANULOCYTES 0.4 %; LYMPHOCYTES 5.4 %; LYMPHOCYTES ABSOLUTE 1.27 10/3/uL (0.67-4.30); MANUAL DIFF NO %; MEAN CORPUS HGB CONC 34.1 g/dL (32.0-36.0); MEAN CORPUSCULAR HEMOGLOB 31.3 pg (26.0-34.0); MEAN CORPUSCULAR VOLUME 91.7 fL (80-100); MEAN PLATELET VOLUME 10.6 fL (9.2-13.0); MONOCYTES 9.9 %; MONOCYTES ABSOLUTE 2.34 10/3/uL (0.21-1.20); NEUTROPHILS 84.3 %; NEUTROPHILS ABSOLUTE 19.95 10/3/uL (2.02-8.40); PLATELET COUNT 176 10/3/uL (150-400); RBC DISTRIBUTION WIDTH 13.7 % (12.0-16.0); RED CELL COUNT 3.87 10/6/uL (4.7-6.1); WHITE BLOOD CELLS 23.7 10/3/uL (4.5-10.5)
[2016-11-12 04:15] LABS: INTERNATIONAL NORMAL RATI 1.3 UNITS (-); PROTIME (NOT ORD) 16.4 SEC (12.0-14.5)
[2016-11-12 04:26] LABS: CALCIUM, SERUM 9.1 MG/DL (8.5-10.4); CHLORIDE, SERUM 105 MMOL/L (96-112); CO2 (CARBON DIOXIDE) 24 MMOL/L (24-34); CREATININE 0.84 MG/DL (0.70-1.30); GFR AFRICAN AMERICAN 115 ML/MIN (>=60); GFR NON AFRICAN AMERICAN 99 ML/MIN (>=60); POTASSIUM, SERUM 4.4 MMOL/L (3.5-5.3); SODIUM, SERUM 137 MMOL/L (135-148)
[2016-11-12 04:27] LABS: BUN (BLOOD UREA NITROGEN) 15 MG/DL (6-23); GLUCOSE, SERUM 121 MG/DL (60-99)
[2016-11-13 03:53] LABS: BASOPHILS 0 %; BASOPHILS ABSOLUTE 0.01 10/3/uL (0.0-0.16); EOSINOPHILS 0 %; EOSINOPHILS ABSOLUTE 0.01 10/3/uL (0.0-0.53); HEMATOCRIT 36.5 % (40.0-51.0); HEMOGLOBIN 12.4 g/dL (13.6-17.8); IMMATURE GRANULOCYTES 0.5 %; IMMATURE GRANULOCYTES ABSOLUTE 0.11 10/3/uL (0.0-0.11); LYMPHOCYTES ABSOLUTE 2.06 10/3/uL (0.67-4.30); MEAN CORPUSCULAR HEMOGLOB 31.2 pg (26.0-34.0); MEAN CORPUSCULAR VOLUME 91.9 fL (80-100); MEAN PLATELET VOLUME 10.3 fL (9.2-13.0); MONOCYTES 12.5 %; MONOCYTES ABSOLUTE 2.58 10/3/uL (0.21-1.20); NEUTROPHILS ABSOLUTE 15.79 10/3/uL (2.02-8.40); PLATELET COUNT 174 10/3/uL (150-400); RBC DISTRIBUTION WIDTH 13.4 % (12.0-16.0); RED CELL COUNT 3.97 10/6/uL (4.7-6.1); WHITE BLOOD CELLS 20.6 10/3/uL (4.5-10.5)
[2016-11-13 03:54] LABS: MANUAL DIFF NO %
[2016-11-13 03:59] LABS: INTERNATIONAL NORMAL RATI 1.3 UNITS (-); PROTIME (NOT ORD) 15.6 SEC (12.0-14.5)
[2016-11-13 04:05] LABS: BUN (BLOOD UREA NITROGEN) 16 MG/DL (6-23); CALCIUM, SERUM 8.9 MG/DL (8.5-10.4); CHLORIDE, SERUM 105 MMOL/L (96-112); CO2 (CARBON DIOXIDE) 25 MMOL/L (24-34); CREATININE 0.83 MG/DL (0.70-1.30); GFR AFRICAN AMERICAN 116 ML/MIN (>=60); GFR NON AFRICAN AMERICAN 100 ML/MIN (>=60); GLUCOSE, SERUM 115 MG/DL (60-99); POTASSIUM, SERUM 3.8 MMOL/L (3.5-5.3); SODIUM, SERUM 140 MMOL/L (135-148)
[2016-11-14 05:47] LABS: BASOPHILS 0.2 %; BASOPHILS ABSOLUTE 0.03 10/3/uL (0.0-0.16); EOSINOPHILS 0.6 %; HEMATOCRIT 36.4 % (40.0-51.0); HEMOGLOBIN 12.5 g/dL (13.6-17.8); IMMATURE GRANULOCYTES 0.7 %; IMMATURE GRANULOCYTES ABSOLUTE 0.11 10/3/uL (0.0-0.11); LYMPHOCYTES 13.9 %; LYMPHOCYTES ABSOLUTE 2.23 10/3/uL (0.67-4.30); MEAN CORPUS HGB CONC 34.3 g/dL (32.0-36.0); MEAN CORPUSCULAR HEMOGLOB 31.1 pg (26.0-34.0); MEAN CORPUSCULAR VOLUME 90.5 fL (80-100); MEAN PLATELET VOLUME 10.4 fL (9.2-13.0); MONOCYTES ABSOLUTE 2.25 10/3/uL (0.21-1.20); NEUTROPHILS 70.6 %; NEUTROPHILS ABSOLUTE 11.35 10/3/uL (2.02-8.40); PLATELET COUNT 209 10/3/uL (150-400); RBC DISTRIBUTION WIDTH 13.9 % (12.0-16.0); RED CELL COUNT 4.02 10/6/uL (4.7-6.1); WHITE BLOOD CELLS 16.1 10/3/uL (4.5-10.5)
[2016-11-14 05:58] LABS: INTERNATIONAL NORMAL RATI 1.5 UNITS (-); PROTIME (NOT ORD) 17.6 SEC (12.0-14.5)
[2016-11-14 06:00] LABS: BUN (BLOOD UREA NITROGEN) 15 MG/DL (6-23); CALCIUM, SERUM 8.6 MG/DL (8.5-10.4); CHLORIDE, SERUM 105 MMOL/L (96-112); CO2 (CARBON DIOXIDE) 26 MMOL/L (24-34); CREATININE 0.82 MG/DL (0.70-1.30); GFR AFRICAN AMERICAN 116 ML/MIN (>=60); GFR NON AFRICAN AMERICAN 100 ML/MIN (>=60); GLUCOSE, SERUM 92 MG/DL (60-99); SODIUM, SERUM 139 MMOL/L (135-148)
[2016-11-14 06:07] LABS: MANUAL DIFF NO %
[2016-11-15 04:48] LABS: BASOPHILS 0.1 %; BASOPHILS ABSOLUTE 0.02 10/3/uL (0.0-0.16); EOSINOPHILS 1.2 %; EOSINOPHILS ABSOLUTE 0.18 10/3/uL (0.0-0.53); HEMATOCRIT 39.2 % (40.0-51.0); HEMOGLOBIN 13.5 g/dL (13.6-17.8); IMMATURE GRANULOCYTES 0.8 %; IMMATURE GRANULOCYTES ABSOLUTE 0.13 10/3/uL (0.0-0.11); LYMPHOCYTES 13.9 %; LYMPHOCYTES ABSOLUTE 2.13 10/3/uL (0.67-4.30); MEAN CORPUS HGB CONC 34.4 g/dL (32.0-36.0); MEAN CORPUSCULAR HEMOGLOB 31.5 pg (26.0-34.0); MEAN CORPUSCULAR VOLUME 91.4 fL (80-100); MONOCYTES 10.4 %; NEUTROPHILS 73.6 %; PLATELET COUNT 258 10/3/uL (150-400); RBC DISTRIBUTION WIDTH 13.5 % (12.0-16.0); RED CELL COUNT 4.29 10/6/uL (4.7-6.1); WHITE BLOOD CELLS 15.4 10/3/uL (4.5-10.5)
[2016-11-15 04:49] LABS: MANUAL DIFF NO %
[2016-11-15 04:55] LABS: INTERNATIONAL NORMAL RATI 1.8 UNITS (-); PROTIME (NOT ORD) 20.7 SEC (12.0-14.5)
[2016-11-15 05:08] LABS: BUN (BLOOD UREA NITROGEN) 15 MG/DL (6-23); CALCIUM, SERUM 8.7 MG/DL (8.5-10.4); CHLORIDE, SERUM 106 MMOL/L (96-112); CO2 (CARBON DIOXIDE) 26 MMOL/L (24-34); CREATININE 0.79 MG/DL (0.70-1.30); GFR AFRICAN AMERICAN 118 ML/MIN (>=60); GFR NON AFRICAN AMERICAN 102 ML/MIN (>=60); GLUCOSE, SERUM 93 MG/DL (60-99); POTASSIUM, SERUM 4.1 MMOL/L (3.5-5.3); SODIUM, SERUM 138 MMOL/L (135-148)
[2016-11-15] MEDS ORDERED: LIPITOR40 PO (09:37)
[2016-11-15] MEDS ORDERED: HALF81 PO (09:37)
[2016-11-15] MEDS ORDERED: PEP20 PO (09:39)
[2016-11-15] MEDS ORDERED: CORDARONE PO (09:39)
[2016-11-15] MEDS ORDERED: PRIN5 PO (09:40)
[2016-11-15] MEDS ORDERED: L20 PO (09:40)
[2016-11-15] MEDS ORDERED: LOP25 PO (09:41)
[2016-11-15] MEDS ORDERED: KLOR-CON20 MEQ PO (09:41)
[2016-11-15] MEDS ORDERED: C5 PO (09:43)
[2016-11-15] MEDS ORDERED: NORCO1 TAB PO (09:45)
== END 2016-11-15 12:27 | disposition home or self-care (01) | DRG 220 ==
LOC: ER 13:31 → 5NO 15:21 → SDC/OF 11-10 10:25 → CVICU 11-10 13:36 → 5NO 11-13 14:32
PROVIDERS: Anesthesiology; Emergency Medicine; Internal Medicine Cardiovascular Disease; Thoracic Surgery (Cardiothoracic Vascular Surgery)
PROC: 02100Z9 Bypass Coronary Artery, One Artery from Left Internal Mammary, Open Approach (ICD-10-PCS; 2016-11-10)
PROC: 06BP0ZZ Excision of Right Saphenous Vein, Open Approach (ICD-10-PCS; 2016-11-10)
PROC: B246ZZ4 Ultrasonography of Right and Left Heart, Transesophageal (ICD-10-PCS; 2016-11-10)
PROC: 021009W Bypass Coronary Artery, One Artery from Aorta with Autologous Venous Tissue, Open Approach (ICD-10-PCS; principal; 2016-11-10 12:30)
PROC: 02RF08Z Replacement of Aortic Valve with Zooplastic Tissue, Open Approach (ICD-10-PCS; 2016-11-10 12:30)
DX: I25.10 Atherosclerotic heart disease of native coronary artery without angina pectoris (principal); Z68.41 Body mass index [BMI] 40.0-44.9, adult; J44.9 Chronic obstructive pulmonary disease, unspecified; I10 Essential (primary) hypertension; I35.0 Nonrheumatic aortic (valve) stenosis; G47.33 Obstructive sleep apnea (adult) (pediatric); Z79.82 Long term (current) use of aspirin; Z79.02 Long term (current) use of antithrombotics/antiplatelets; E66.01 Morbid (severe) obesity due to excess calories; E78.5 Hyperlipidemia, unspecified
CPT/HCPCS: 36415; 71010; 71020; 80048; 80053; 80061; 81001; 82330; 82803; 82805; 82947; 82962; 83036; 83735; 83880; 84132; 84295; 84460; 84484; 85014; 85018; 85025; 85049; 85347; 85384; 85576; 85576-59; 85610; 85730; 86850; 86900; 86901; 86920; 87641; 88305; 88311; 93005; 93312; 93320; 93325; 93880; 94002; 94640; 94660; 94667; 94668; 94770; 97161-GP; 99285; A9270-GY; C1725; C1751; C1769; C1894; J0690; J1644; J2150; J2250; J2370; J2405; J2440; J2720; J3010; J3475; J3480; P9045; P9047